=== PATIENT | female | born 2000 | race Caucasian/White ===

== ENCOUNTER 2024-06-27 13:45 | Emergency (ER) | payer SELFPAY ==
[2024-06-27 14:12] VITALS: BP 133/49; PULSE 77; RESP 16; TEMP 37.1; O2SAT 100
--- NOTE | 2024-06-27 14:36 | ED.ANIMALBIT ---
HPI - Animal Bite General Chief Complaint: Animal Bite Stated Complaint: Dog Bite/Right Arm Time Seen by Provider: 06/27/24 14:37 Source: patient Mode of arrival: ambulatory Limitations: no limitations History of Present Illness HPI narrative: 23-year-old female presented for complaint of dog bites to the right forearm sustained yesterday. She reports minimal laceration, but it bruising and swelling to the site. This was her dog was up-to-date on vaccinations. She states she reached to help it remove it is foot while it was caught and it bit her on the 2 different occasions. Denies numbness, tingling, weakness or decreased range of motion. She applied antiseptic cleanser to the site. Related Data Allergies Allergy/AdvReac Type Severity Reaction Status Date / Time No Known Allergies Allergy Verified 11/04/23 15:18 Review of Systems Review of Systems: CONSTITUTIONAL: Denies body aches, fever, chills, or sweats. EYES: Denies visual changes, redness, or discharge. ENT: Denies rhinorrhea, congestion CARDIOVASCULAR: Denies chest pain, palpitations, or edema. RESPIRATORY: Denies cough or dyspnea. GASTROINTESTINAL: Denies abdominal pain, nausea, vomiting, or diarrhea. SKIN: Per HPI MUSCULOSKELETAL: Denies back pain, joint pain, or myalgia. NEUROLOGIC: Denies headache, numbness, tingling, or weakness. [facility] Past Medical History Medical History Acne Encounter for gynecological examination Exposure to sexually transmitted disease (STD) Family History Family History Father Hypertension Social History Social History Smoking status: Never smoker Alcohol intake: current Alcohol use details: occasional Substance use: never Living arrangements: alone Occupation/Education: occupation Gender identity (if verbalized by the patient): Female Sexual Orientation (if Verbalized by the Patient): Straight or Heterosexual Comments At time of signature, I have reviewed and agree with nursing past medical, surgical, social and family history unless otherwise noted. Please see nursing chart for further information. There is no relevant family history pertinent to the presenting complaint Exam Narrative: GENERAL: Well-appearing HEAD: Normocephalic, atraumatic. EYES: conjunctivae clear, and EOMI. ENT: Mucous membranes moist. Oropharynx without edema, erythema or lesions. NECK: Supple. No lymphadenopathy CHEST: Clear to auscultation. HEART: Regular rate and rhythm. SKIN: Warm, dry. right forearm with 2 areas of bruising approx 5cm diameter with superficial abrasion to center of both. CMS intact. NEURO: Alert and oriented x3. Course Course Emergency Course: Patient is aware of diagnosis, understands and agrees to treatment plan. Anticipatory guidance given. Patient agrees to follow-up as directed and is aware of reasons to seek care at the emergency department. Portions of this record may have been created with voice recognition software Level of Care: Express Care Visit Vital Signs Vital signs: Vital Signs Temperature 98.7 F 06/27/24 14:12 Pulse Rate 77 06/27/24 14:12 Respiratory Rate 16 06/27/24 14:12 Blood Pressure 133/49 L 06/27/24 14:12 Pulse Oximetry 100 06/27/24 14:12 Oxygen Delivery Room Air 06/27/24 14:12 Temperature 98.7 F 06/27/24 14:12 Pulse Rate 77 06/27/24 14:12 Respiratory Rate 16 06/27/24 14:12 Blood Pressure 133/49 L 06/27/24 14:12 Pulse Oximetry 100 06/27/24 14:12 Oxygen Delivery Room Air 06/27/24 14:12 Reviewed MDM - Animal Bite MDM Narrative Medical decision making narrative: Patient reports 2 dog bites to the right forearm, however she states she is holistic and would prefer not to start antibiotic. The wounds appear superficial and clean. Discussed
== END 2024-06-27 14:49 | disposition home or self-care (01) ==
PROVIDERS: Emergency Provider Nurse Practitioner Family
DX: S50.811A Abrasion of right forearm, initial encounter (principal); W54.0XXA Bitten by dog, initial encounter
CPT/HCPCS: 99212; G0463